=== PATIENT | female | born 1945 | race African-American/Black ===

== ENCOUNTER → 2017-11-15 | Outpatient (CLI) | payer BC ==
[~2017-11-15] MED LIST: ASPIRIN325 PO; KLOR-CON 1010 MEQ PO; LASIX 20 MG TAB20 MG PO; NITROGLYCERIN0.4 MG SUBLING
--- NOTE | 2017-11-15 18:14 | EKG ---
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
== END ==
LOC: EDBD 14:29 → M.ULTRA 14:29
DX: R06.02 Shortness of breath (principal); R55 Syncope and collapse; R51 Headache; R07.9 Chest pain, unspecified

== ENCOUNTER → 2018-02-18 | Outpatient (CLI) | payer BC, MEDICARE ==
[2018-02-18] VITALS (7 sets, daily range): BP systolic 124–185; BP diastolic 48–91
--- NOTE | 2018-02-18 13:28 | TEE ---
[place] [address] TRANSESOPHAGEAL ECHOCARDIOGRAM Name: SMITHA YOUNG Room: [facility]#: [id number] Admission: 02/18/18 Attend Phys: Charli Walls, Discharge: Date of : [birth year] Date of Service: 02/18/18 1327 Report #: [id number] THIS REPORT FOR: //name// APPROVED REPORT Study performed: 02/18/2018 10:51:22 EXAM: Transesophageal Echocardiogram Patient Location: Out-Patient Status: routine BSA: 2.00 HR: 55 bpm BP: 148/85 mmHg Rhythm: NSR Other Information Study Quality: Good Indications Mitral Valve Disease Procedure After obtaining informed consent, patient underwent transesophageal echo in the [employer]. Type of Sedation : Conscious Sedation Sedation was administered by Florence Ca. Sedation start time: 1050 Case end Time: 1109 Sedation was achieved intravenously with: Versed (7) Fentanyl (50) Transesophageal probe was inserted and advanced into esophagus without difficulty by Charli Walls MD, FACC. Echo enhancement indication: R/O Septal defect. Echo enhancement agent administered: Agitated Saline The MORA was performed without complications. Throughout the procedure, the blood pressure, pulse oximetry, cardiac rhythm, and rate were monitored. The patient tolerated the procedure without adverse effects. Recovery from conscious sedation was uneventful and vital signs were stable. Left Ventricle The left ventricle is normal size. There is normal LV segmental wall motion. There is normal left ventricular wall thickness. There is no ventricular septal defect visualized. Left ventricular systolic function is normal. The left ventricular ejection fraction is within [address] [address] TRANSESOPHAGEAL ECHOCARDIOGRAM Name: SMITHA YOUNG Room: [facility]#: [id number] Admission: 02/18/18 Attend Phys: Charli Walls, Discharge: Date of : [birth year] Date of Service: 02/18/18 1327 Report #: [id number] the normal range. No left ventricle thrombus noted on this study. LVEF is 65-70%. Right Ventricle The right ventricle is normal size. The right ventricular systolic function is normal. Atria The left atrium size is normal. No thrombus is visualized in the left atrium or appendage. Interatrial septum is intact without evidence of ASD or PFO.Negative bubble study. The right atrium size is normal. Aortic Valve The aortic valve is normal in structure. Aortic valve is trileaflet. No aortic regurgitation is present. There is no aortic valvular stenosis. Mitral Valve The posterior mitral valve leaflet is thickened , calcified and redundant . There is severe reduction in the annulus with apparent severe mitral valve stenosis. Moderate mitral regurgitation. Severe mitral stenosis. Tricuspid Valve The tricuspid valve is normal in structure. Mild tricuspid regurgitation. Pulmonic Valve The pulmonary valve is normal in structure. There is no pulmonic valvular regurgitation. Great Vessels The aortic root is normal in size. Pericardium There is no pericardial effusion. <Conclusion> LVEF is 65-70%. There is normal LV segmental wall motion. The posterior mitral valve leaflet is thickened , calcified and redundant . There is severe reduction in the annulus with apparent severe mitral valve stenosis. Moderate [place] [address] TRANSESOPHAGEAL ECHOCARDIOGRAM Name: HANNAHSMITHA Room: [facility] Darian#: [id number] Admission: 02/18/18 Attend Phys: Charli Walls, Discharge: Date of : [birth year] Date of Service: 02/18/181326 Report #: [id number] The left atrium size is normal. No thrombus is visualized in the left atrium or appendage. <ELECTRONICALLY SIGNED> By: Charli Walls MD, FACC 02/18/181326 26 26 Charli Walls MD, FACC /INF
== END | disposition home or self-care (01) ==
LOC: M.CL 09:08
DX: I05.2 Rheumatic mitral stenosis with insufficiency (principal); I36.1 Nonrheumatic tricuspid (valve) insufficiency

== ENCOUNTER 2018-02-22 10:16 | Inpatient (IN) | payer BC, MEDICARE ==
[~2018-02-22] VITALS: Ht 147.3 cm; Wt 124.3 kg
[~2018-02-22 10:16] MED LIST changes: -ASPIRIN325 PO; -NITROGLYCERIN0.4 MG SUBLING
[2018-02-22 10:18] VITALS: BP 151/64
[2018-02-22 10:57] LABS: ABSOLUTE BASOPHILS 0.1 thou/uL (0.0-0.2); ABSOLUTE EOSINOPHILS 0.3 thou/uL (0.0-0.7); ABSOLUTE LYMPHOCYTES 1.3 thou/uL (0.8-5.3); ABSOLUTE MONOCYTES 0.4 thou/uL (0.0-1.2); ABSOLUTE NEUTROPHILS 2.4 thou/uL (1.6-8.1); BASOPHILS 1.2 %; EOSINOPHILS 6.4 %; HEMATOCRIT 39.1 % (37.0-47.0); HEMOGLOBIN 12.9 gm/dL (12.0-15.0); LYMPHOCYTES 29.9 %; MCH 29.1 pg (26.0-34.0); MCV 88.4 fL (80.0-100.0); MPV 7.7 fl. (7.2-11.1); NUCLEATED RBCS 0 /100WBC; PLATELET COUNT* 229 thou/uL (150-400); POLYS 52.5 %; RBC 4.42 mil/uL (4.20-5.00); WBC 4.5 thou/uL (4.0-11.0)
[2018-02-22 11:12] LABS: ANION GAP 6 mmol/L (7-16); BUN 23 mg/dL (7-18); CALCIUM 9.1 mg/dL (8.5-10.1); CHLORIDE 105 mmol/L (98-107); CO2 28 mmol/L (21-32); GLUCOSE 91 mg/dL (70-99); POTASSIUM 3.8 mmol/L (3.5-5.1); SODIUM 139 mmol/L (136-145)
[2018-02-22 11:22] LABS: ALBUMIN 3.4 g/dL (3.4-5.0); ALKALINE PHOSPHATASE 101 U/L (46-116); LIPASE 54 U/L (73-393); MAGNESIUM 2.1 mg/dL (1.8-2.4); NT-PRO BRAIN NAT PEPTIDE 229 pg/mL (<300); SGOT 11 U/L (15-37); SGPT 12 U/L (30-65); TOTAL BILIRUBIN 0.5 mg/dL (<0.1-1.0); TOTAL PROTEIN 7.3 g/dL (6.4-8.2); TROPONIN-I LEVEL <0.06 ng/mL (<0.06)
[2018-02-22 13:07] VITALS: BP 109/51
[2018-02-22 13:33] VITALS: BP 129/55
[2018-02-22 15:48] VITALS: BP 140/66
--- NOTE | 2018-02-22 16:52 | NUR ---
PT ADMITTED AROUND 1330 PT IS ALERT AND ORIENTED X 4 PT DENIES PAIN INCLUDING CHEST PAIN OR SOA ON 2L/NC, PT IS UP AD BENITEZ PT IS NOT A FALL RISK PT EDUCATED TO CALL FOR ASSISTANCE IF SHE FEELS DIZZY OR LIGHTHEADED WHICH PT STATES SHE DOES NOT AND STATES UNDERSTANDING PT IS SB PAC ON THE MONITOR, PT HAS CARDIOLOGY CONSULT TALKED WITH HOSPITALIST OBTAINED ORDER FOR DIET GAVE PT BOXED LUNCH, WILL CONTINUE TO MONITOR
[2018-02-22 20:00] VITALS: BP 132/62
[2018-02-22 20:30] VITALS: BP 100/50
[2018-02-23 00:30] VITALS: BP 111/57
[2018-02-23 03:52] VITALS: BP 124/52
[2018-02-23 05:01] LABS: HEMATOCRIT 37.4 % (37.0-47.0); HEMOGLOBIN 12.3 gm/dL (12.0-15.0); MCH 29.2 pg (26.0-34.0); MCHC 32.9 g/dL (28.0-37.0); MCV 88.9 fL (80.0-100.0); MPV 7.8 fl. (7.2-11.1); RBC 4.21 mil/uL (4.20-5.00); RDW-CV 15.1 % (10.5-14.5); WBC 5.2 thou/uL (4.0-11.0)
[2018-02-23 05:21] LABS: CALCIUM 9.2 mg/dL (8.5-10.1); CREATININE 1.4 mg/dL (0.6-1.3); MAGNESIUM 2.2 mg/dL (1.8-2.4); POTASSIUM 4.1 mmol/L (3.5-5.1)
--- NOTE | 2018-02-23 05:40 | NUR ---
ASSUMED PT CARE AT 1930. NURSING ASSESSMENT COMPLETED AT START OF SHIFT. PT VOICED NO CONCERNS THIS SHIFT. PT TRACING SB WITH PVCS THIS SHIFT. PT C/O CHEST PAIN AT 2004. STAT EKG SHOWS SINUS RHYTHM. SPOKE WITH DR. LARSEN AT 2014. NEW ORDER RECEIVED FOR NITROGLYCERIN 0.4 MG SUBLINGUAL X3 DOSES. SEE EMAR FOR DOCUMENTATION. NO RELIEF AFTER FIRST NITRO DOSE, BP DROP TO 100/50, SPOKE WITH DR. BENTLEY AT 2099. NEW ORDERS RECEIVED FOR TORADOL. SEE EMAR FOR DOCUMENTATION. PT VERBALIZED RELIEF OF PAIN AFTER FIRST DOSE. PT RESTING QUIETLY IN ROOM AT THIS TIME. PT NPO AFTER MIDNIGHT. HOURLY ROUNDING COMPLETED, CALL LIGHT WITHIN REACH.
[2018-02-23 08:00] VITALS: BP 129/63
--- NOTE | 2018-02-23 11:52 | EKG ---
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 : 1946-08-25 Requested By: Justino Urena Order Number: [id number] Reading MD: Charli Walls Measurements Intervals [place] Rate: 54 P: 58 [place]: 177 QRS: 78 QRSD: 106 T: 62 QT: 456 QTc: 433 Interpretive Statements Sinus rhythm Borderline T wave abnormalities Baseline wander in lead(s) II Compared to ECG 11/15/2017 15:33:49 T-wave abnormality now present Electronically Signed On 02-23-2018 11:52:27 CDT by Charli Walls [email or web address] <ELECTRONICALLY SIGNED> By: Charli Walls MD, [facility] 02/23/18 1152 1234 1234 Charli Walls MD, [facility] /EPI
--- NOTE | 2018-02-23 11:52 | EKG ---
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 : 1946-08-25 Requested By: Glenn Toussaint Order Number: [id number] Reading MD: Charli Walls Measurements Intervals [place] Rate: 61 P: 66 [place]: 171 QRS: 86 QRSD: 113 T: 58 QT: 440 QTc: 444 Interpretive Statements Sinus rhythm Borderline intraventricular conduction delay Compared to ECG 11/15/2017 15:33:49 No significant changes Electronically Signed On 02-23-2018 11:52:17 CDT by Charli Walls [email or web address] <ELECTRONICALLY SIGNED> By: Charli Walls MD, [facility] 02/23/18 1152 1021 1021 Charli Walls MD, [facility] /EPI
--- NOTE | 2018-02-23 11:53 | EKG ---
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 [id number] 50 50 Charli Walls MD, FAC /EPI
[2018-02-23 12:06] VITALS: BP 118/38
[2018-02-23 14:22] LABS: BE 2.1 mmol/L (-2 to +3); HCO3 27.5 mmol/L (22.0-26.0); PCO2 45.6 mmHg (35.0-45.0); PO2 83.2 mmHg (75.0-100.0); pH 7.398 (7.340-7.450)
[2018-02-23 15:44] VITALS: BP 99/68
[2018-02-23] MEDS ORDERED: ASPIRIN325 PO (17:04)
[2018-02-23] MEDS ORDERED: NITROGLYCERIN0.4 MG SUBLING (17:06)
[2018-02-23 17:18] VITALS: BP 99/68
--- NOTE | 2018-02-23 17:35 | NUR ---
INFO FAXED TO [employer] FOR HOME WHEELCHAIR USE INCLUDING FACESHEET AND RX. NUMBER LEFT TO RETURN CALL TO CM TOMORROW WITH ANY QUESTIONS
--- NOTE | 2018-02-23 18:12 | NUR ---
ORDER RECEIVED TO DISCHARGE PATIENT HOME TO SELF CARE. ORDER RECEIVED TO OBTAIN WHEELCHAIR FOR HOME USE. ORDER OBTAINED FOR OVERNIGHT PULSE OX TO FURTHER ASSESS FOR HOME SUPPLEMENTAL OXYGEN. MED REC, MEDICATION EDUCATION, STROKE EDUCATION, AND NEED FOR FOLLWO UP APPOINTMENT WITH CTS AT [facility] COVERED AND STATED UNDERSTOOD BY PATIENT. IV AND TELEMTRY PACK REMOVED AND PATIENT TAKEN VIA WHEELCHAIR WITH FAMILY PRESENT TO AWAITNG CAR. HOURLY ROUNDING COMPLETD FOR PATIENT SAFETY AND PATIENT PARTICIPATED IN PLAN OF CARE.
--- NOTE | 2018-02-24 13:18 | NUR ---
[place] spoke with Amelie with [employer], she informed that Pt does not qualify for a wheelchair. Amelie to contact Pt and inform.
--- NOTE | 2018-03-04 15:27 | CON ---
[address] [address] CONSULTATION Name: HANNAHSMITHA Diego Room: [address] IN [facility].#: [id number] Admission: 02/22/18 Attend Phys: Justino Urena, Discharge: 02/23/18 Date of : [birth year] Report #: [id number] THIS REPORT FOR: //name// CC: ANIBAL physician/PCP Justino Urena REASON FOR CONSULTATION: Shortness of breath, chest discomfort. HISTORY OF PRESENT ILLNESS: The patient is a 71-year-old female known to myself as she has a history of mitral valve disease. She presented with severe episode of chest discomfort and shortness of breath episode yesterday with activity. She presents with a need for oxygen per nasal cannula. She was mildly hypoxic and on O2 of 2 liters nasal cannula. Her symptoms resolved. Her presenting ECG did not show any acute ST segment abnormalities and cardiac troponin levels are normal. She maintained a sinus rhythm. I had seen her initially as an outpatient after being discharged from [facility] with a diagnosis of normal coronary arteries. Subsequent to this, had an echocardiogram, demonstrated moderate mitral valve stenosis. However, clinical evaluation indicated she had significant dyspnea with any sort of activity. We performed a transesophageal echocardiogram, which revealed severe mitral valve stenosis as well as a mixed valvular insufficiency as well with mitral valve regurgitation. She has moderately elevated PA pressures. PAST MEDICAL HISTORY: Significant as noted above for mixed mitral valve disease, and she was scheduled for evaluation per CT Surgery at [facility]. Apparently, this is scheduled for tomorrow. HOME MEDICATIONS: Include Lasix 20 mg daily and potassium chloride 10 mEq daily. SOCIAL HISTORY: She is a nonsmoker, never smoker. She does not use alcohol. FAMILY HISTORY: Noncontributory. REVIEW OF SYSTEMS: GENERAL: No fevers or chills. PULMONARY: No cough. Positive dyspnea with exertion. Positive orthopnea. Positive PND. CARDIOVASCULAR: No palpitations noted. Positive chest pain, no edema. NEUROLOGIC: Denies slurred speech, numbness or weakness. No history of strokes, TIAs. ENDOCRINE: She is not known to be a diabetic. PHYSICAL EXAMINATION: VITAL SIGNS: Blood pressure is 150/60 on presentation, [place] [address] CONSULTATION Name: SMITHA YOUNG Room: [address]#: [id number] Admission: 02/22/18 Attend Phys: Justino Urena, Discharge: 02/23/18 Date of : [birth year] Report #: [id number] is 124/52. Pulse is 64, in a sinus rhythm, temperature 36.6. GENERAL: Pleasant, moderately obese, elderly -[place] female. She is very pleasant, in no apparent distress. HEENT: Unremarkable. Eyes are intact. No facial asymmetry. NECK: Supple. No jugular venous distention. CARDIOVASCULAR: Regular, with a systolic murmur. Faint diastolic component. LUNGS: Clear to auscultation. ABDOMEN: Nontender. EXTREMITIES: Show no peripheral edema. SKIN: Warm and dry. LABORATORY DATA: Electrocardiogram shows a sinus rhythm, bradycardia, with normal ST segments. She does have a borderline right axis. Chest x-ray shows mild cardiomegaly without findings for acute cardiopulmonary disease. IMPRESSION: 1. Acute hypoxia. I suspect she does have an oxygen requirement given her pulmonary hypertension secondary to her cardiovascular valvular disease. I would like to arrange for home O2 if possible until evaluation with CT Surgery. 2. Mixed mitral valve disease, predominantly a component of severe mitral valve stenosis, but she also has underlying mitral valve regurgitation, secondary pulmonary hypertension. 3. Pulmonary hypertension as above. I would like to see if she can benefit from home O2 in a short-term. 4. Preserved left ventricular function. 5. History of normal coronaries via cardiac catheterization at [facility]. There is no PCP. <ELECTRONICALLY SIGNED> By: Charli Walls MD, FACC 03/04/18 1527 1050 1300Charli Walls MD, FACC /nt
== END 2018-02-23 17:30 | disposition home or self-care (01) | DRG 291 ==
LOC: M.ERS 10:16 → M.2W 12:08 → M.TBA-ER 12:08 → M.2W 13:34
PROVIDERS: Emergency Medicine Emergency Medical Services; ADMIT Family Medicine
DX: I50.31 Acute diastolic (congestive) heart failure (principal); J96.01 Acute respiratory failure with hypoxia; Z68.43 Body mass index [BMI] 50.0-59.9, adult; I27.20 Pulmonary hypertension, unspecified; I05.0 Rheumatic mitral stenosis; R07.89 Other chest pain; E66.01 Morbid (severe) obesity due to excess calories; Z90.710 Acquired absence of both cervix and uterus; Z79.82 Long term (current) use of aspirin; Z79.899 Other long term (current) drug therapy; Z84.89 Family history of other specified conditions

== ENCOUNTER → 2018-07-16 | Outpatient (CLI) | payer BC, MEDICARE ==
[~2018-07-16] MED LIST changes: +ASPIRIN325 PO; +NITROGLYCERIN0.4 MG SUBLING
== END ==
LOC: M.RAD 13:16
DX: J98.11 Atelectasis (principal); Z98.890 Other specified postprocedural states; Z95.2 Presence of prosthetic heart valve

== ENCOUNTER 2018-09-22 14:15 | Inpatient (IN) | payer BC, OTHER ==
[~2018-09-22] VITALS: Ht 149.9 cm; Wt 125.2 kg
[2018-09-22 14:25] VITALS: BP 145/48
[2018-09-22] MEDS ORDERED: COUMADIN 2 MG TA2 M1 PO (14:31)
[2018-09-22 15:23] LABS: ABSOLUTE EOSINOPHILS 0.3 thou/uL (0.0-0.7); ABSOLUTE LYMPHOCYTES 1.3 thou/uL (0.8-5.3); ABSOLUTE MONOCYTES 0.4 thou/uL (0.0-1.2); ABSOLUTE NEUTROPHILS 2.1 thou/uL (1.6-8.1); BASOPHILS 0.9 %; EOSINOPHILS 6.7 %; HEMOGLOBIN 11.4 gm/dL (12.0-15.0); LYMPHOCYTES 31.4 %; MCH 28.2 pg (26.0-34.0); MCHC 32.5 g/dL (28.0-37.0); MCV 86.6 fL (80.0-100.0); MONOCYTES 9.9 %; MPV 7.6 fl. (7.2-11.1); NUCLEATED RBCS 0 /100WBC; PLATELET COUNT* 182 thou/uL (150-400); POLYS 51.1 %; RBC 4.04 mil/uL (4.20-5.00); RDW-CV 16.4 % (10.5-14.5); WBC 4.1 thou/uL (4.0-11.0)
[2018-09-22 15:29] LABS: INR 3.2; PROTIME 32.8 Seconds (9.20-11.50)
[2018-09-22 15:30] LABS: ANION GAP 6 mmol/L (7-16); BUN 16 mg/dL (7-18); CALCIUM 8.8 mg/dL (8.5-10.1); CHLORIDE 103 mmol/L (98-107); CO2 26 mmol/L (21-32); CREATININE 1.2 mg/dL (0.6-1.3); GLUCOSE 80 mg/dL (70-99); POTASSIUM 4.3 mmol/L (3.5-5.1); SODIUM 135 mmol/L (136-145)
[2018-09-22 15:40] LABS: ALBUMIN 3.3 g/dL (3.4-5.0); ALKALINE PHOSPHATASE 100 U/L (46-116); LIPASE 56 U/L (73-393); MAGNESIUM 2.1 mg/dL (1.8-2.4); NT-PRO BRAIN NAT PEPTIDE 755 pg/mL (<300); SGOT 13 U/L (15-37); SGPT 10 U/L (30-65); TOTAL BILIRUBIN 0.4 mg/dL (<0.1-1.0); TOTAL PROTEIN 7.3 g/dL (6.4-8.2); TROPONIN-I LEVEL <0.06 ng/mL (<0.06)
--- NOTE | 2018-09-22 15:56 | EKG ---
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 : 1946-08-25 Requested By: Glenn Toussaint Order Number: [id number] MD: Frankie Dubois Measurements Intervals [place] Rate: 61 P: -51 [place]: 164 QRS: 92 QRSD: 100 T: 68 QT: 452 QTc: 456 Interpretive Statements Sinus or ectopic atrial rhythm Right axis deviation Compared to ECG 02/22/2018 19:51:20 no change Electronically Signed On 09-22-2018 15:56:44 [employer] INSTRUMENT REPAIRER by Frankie Dubois [email or web address] <ELECTRONICALLY SIGNED> By: Frankie Dubois MD, [facility] 09/22/18 1556 1424 1424 Frankie Dubois MD, FACC /EPI
[2018-09-22 20:18] VITALS: BP 134/49
[2018-09-22 21:00] VITALS: BP 149/58
--- NOTE | 2018-09-22 21:00 | NUR ---
RECEIVED REPORT FROM ER, AMBULATED FROM CART TO BED WITH SLOW STEADY GAIT AND CANE. PT HAS BLE LYMPHEDEMA. TELEMETRY APPLIED SHOWING SB. NO SOB NOTED, ON RA. SEE ADMISSION ASSESSMENT AND HX. WILL CONT TO MONITOR AND ASSIST NEEDED.
--- NOTE | 2018-09-22 23:00 | NUR ---
PT C/O CHEST PRESSURE AND BUZZING FEELING. RATING PAIN 8/10 SCALE. TELEMETRY SHOWING SR. MORPHINE GIVEN AND EFFECTIVE.
[2018-09-23] VITALS: BP 127/35
[2018-09-23 03:14] LABS: ABSOLUTE BASOPHILS 0.1 thou/uL (0.0-0.2); ABSOLUTE EOSINOPHILS 0.3 thou/uL (0.0-0.7); ABSOLUTE LYMPHOCYTES 1.1 thou/uL (0.8-5.3); ABSOLUTE MONOCYTES 0.4 thou/uL (0.0-1.2); ABSOLUTE NEUTROPHILS 2.8 thou/uL (1.6-8.1); BASOPHILS 1.2 %; HEMATOCRIT 34.1 % (37.0-47.0); HEMOGLOBIN 11.1 gm/dL (12.0-15.0); LYMPHOCYTES 23.7 %; MCH 28.1 pg (26.0-34.0); MCHC 32.6 g/dL (28.0-37.0); MCV 86.2 fL (80.0-100.0); MONOCYTES 9.5 %; MPV 7.7 fl. (7.2-11.1); NUCLEATED RBCS 0 /100WBC; PLATELET COUNT* 198 thou/uL (150-400); POLYS 59.6 %; RBC 3.96 mil/uL (4.20-5.00); RDW-CV 15.7 % (10.5-14.5); WBC 4.6 thou/uL (4.0-11.0)
[2018-09-23 03:17] LABS: INR 3.2; PROTIME 32.8 Seconds (9.20-11.50)
[2018-09-23 04:00] VITALS: BP 138/61
[2018-09-23 04:49] LABS: ANION GAP 5 mmol/L (7-16); BUN 16 mg/dL (7-18); CHLORIDE 105 mmol/L (98-107); CHOLESTEROL 171 mg/dL (<200); CO2 27 mmol/L (21-32); CREATININE 1.2 mg/dL (0.6-1.3); GLUCOSE 99 mg/dL (70-99); HDL CHOLESTEROL 76 mg/dL (>40); LDL CHOLESTEROL 89 mg/dL (<100); MAGNESIUM 2.1 mg/dL (1.8-2.4); SODIUM 137 mmol/L (136-145); TC:HDL 2.3 Ratio (Not establshd); TRIGLYCERIDE 33 mg/dL (<150); VLDL 7 mg/dL (<40)
[2018-09-23 04:57] LABS: SERUM ASSESSMENT Clear
--- NOTE | 2018-09-23 06:11 | NUR ---
SLEPT WELL TONIGHT. ASSISTED TO BR WITH STEADY GAIT AND CANE. NO SOB NOTED. C/O CHEST PAIN X2 AND RESOLVED WITH MORPHINE. TELEMETRY SHOWING SB. HS GOALS OF REST AND SAFETY ACHIEVED. HOURLY ROUNDING OBSERVED.
[2018-09-23 06:35] LABS: AMP/METHAMP Negative (Negative); BARBITURATES Negative (Negative); BENZODIAZEPINES Negative (Negative); COCAINE Negative (Negative); METHADONE Negative (Negative); OPIATES POSITIVE (Negative); PCP Negative (Negative); THC Negative (Negative)
[2018-09-23 08:15] VITALS: BP 117/52
--- NOTE | 2018-09-23 08:55 | NUR ---
REC'D REPORT FROM NOC RN, ASSUMED CARE OF PT APPROX 0730. A&OX4, ABLE TO COMMUNICATE NEEDS TO STAFF. ROLL PICKER IN PLACE, SB PACS. O2 SAT 97% RA. ASSESSMENT COMPLETE. VS OBTAINED. CALL LIGHT WITHIN REACH. HOURLY ROUNDING FOR SAFETY AND PT NEEDS.
[2018-09-23 12:02] VITALS: BP 116/60
--- NOTE | 2018-09-23 12:55 | EKG ---
[place] [address] ELECTROCARDIOGRAM REPORT Name: SMITHA YOUNG Room: [address] ADM IN [facility].#: [id number] Admission: 09/22/18 Attend Phys: Cassie Torres MD Discharge: Date of : [birth year] Report #: [id number] THIS REPORT FOR: //name// [facility] Test Date: 2018-09-23 Test Time: 08:08:42 Pat Name: SMITHA YOUNG Department: Room: 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: : 1946-08-25 Requested By: Cassie Torres Order Number: [id number] Reading MD: Frankie Dubois Measurements Intervals [place] Rate: 60 P: -18 [place]: 175 QRS: 81 QRSD: 103 T: 78 QT: 479 QTc: 479 Interpretive Statements Sinus rhythm Atrial premature complex Borderline right axis deviation Compared to ECG 09/22/2018 14:24:02 Atrial premature complex(es) now present Electronically Signed On 09-23-2018 12:55:08 [employer] SERVICE UNIT OPERATOR by Frankie Dubois [email or web address] <ELECTRONICALLY SIGNED> By: Frankie Dubois MD, [facility] 09/23/18 1251 0808 0808 Frankie Dubois MD, [facility] /EPI
--- NOTE | 2018-09-23 14:52 | NUR ---
Pt was sound asleep when CM went to assess will f/u later
--- NOTE | 2018-09-23 14:54 | 2DMMODE ---
[place] [address] 2 D/M-MODE ECHOCARDIOGRAM Name: SMITHA YOUNG Room: [address] IN [facility]#: [id number] Admission: 09/22/18 Attend Phys: Cassie Torres MD Discharge: Date of : [birth year] Date of Service: 09/23/18 1454 Report #: [id number] THIS REPORT FOR: //name// APPROVED REPORT Study performed: 09/23/2018 10:34:28 EXAM: Comprehensive 2D, Doppler, and color-flow Echocardiogram Patient Location: In-Patient Room #: [facility] Status: routine BSA: 2.12 HR: 59 bpm BP: 138/61 mmHg Rhythm: NSR Other Information Study Quality: Good Indications Mitral Valve Disease Chest Pain MVR 2D Dimensions IVSd: 10.14 (7-11mm) LVOT Diam: 15.84 (18-24mm) LVDd: 38.83 mm PWd: 9.10 (7-11mm) Ascending Ao: 32.16 (22-36mm) LVDs: 23.38 (25-40mm) Aortic Root: 30.11 mm Volumes Left Atrial Volume (Systole) LA ESV Index: 23.40 mL/m2 Aortic Valve AoV Peak Josias.: 1.65 m/s AO Peak Gr.: 10.89 mmHg LVOT Max P.27 mmHg AO Mean Gr.: 6.31 mmHg LVOT Mean P.30 mmHg LVOT Max V: 1.25 m/s AO V2 VTI: 38.95 cm LVOT Mean V: 0.84 m/s JOSE FRANCISCO (VTI): 1.74 cm2 LVOT V1 VTI: 34.37 cm Mitral Valve MV Mean Gr.: 5.09 mmHg E/A Ratio: 2.21 [place] [address] 2 D/M-MODE ECHOCARDIOGRAM Name: SMITHA YOUNG Room: [address] IN [facility].#: [id number] Admission: 09/22/18 Attend Phys: Cassie Torres MD Discharge: Date of : [birth year] Date of Service: 09/23/18 1454 Report #: [id number] MV Decel. Time: 238.27 ms MV E Max Josias.: 1.80 m/s MV PHT: 69.10 ms MVA (PHT): 3.18 cm2 TDI E/Lateral E': 20.00 E/Medial E': 30.00 Medial E' Josias.: 0.06 m/s Lateral E' Josias.: 0.09 m/s Pulmonary Valve PV Peak Josias.: 0.86 m/s PV Peak Gr.: 2.95 mmHg Tricuspid Valve RAP Estimate: 5.00 mmHg TR Peak Gr.: 47.86 mmHg RVSP: 52.00 mmHg PA Pressure: 52.00 mmHg Left Ventricle The left ventricle is normal size. There is normal LV segmental wall motion. There is normal left ventricular wall thickness. Left ventricular systolic function is normal. The left ventricular ejection fraction is within the normal range. LVEF is 60-65%. Grade IV - fixed restrictive diastolic dysfunction. Right Ventricle The right ventricle is normal size. The right ventricular systolic function is normal. Atria The left atrium size is normal. The right atrium size is normal. Aortic Valve The aortic valve is normal in structure. No aortic regurgitation is present. There is no aortic valvular stenosis. Mitral Valve Mild mitral annular calcification. There is a bioprosthetic mitral valve. Mild mitral regurgitation. No evidence of mitral valve stenosis. Tricuspid Valve The tricuspid valve is normal in structure. Mild tricuspid regurgitation. estimate pa pressure 55 [place] [address] 2 D/M-MODE ECHOCARDIOGRAM Name: SMITHA YOUNG Diego Room: [address] IN [facility]#: [id number] Admission: 09/22/18 Attend Phys: Cassie Torres MD Discharge: Date of : [birth year] Date of Service: 09/23/18 1454 Report #: [id number] Pulmonic Valve The pulmonary valve is normal in structure. Mild pulmonic regurgitation. Great Vessels The aortic root is normal in size. IVC is normal in size and collapses >50% with inspiration. Pericardium There is no pericardial effusion. <Conclusion> LVEF is 60-65%. Mild mitral regurgitation. Mild tricuspid regurgitation. estimate pa pressure 55 mm Hg <ELECTRONICALLY SIGNED> By: Frankie Dubois MD, FACC 09/23/18 1454 1454 1454 Frankie Dubois MD, FACC /INF
--- NOTE | 2018-09-23 15:41 | CARDNUC ---
[place] [address] CARDIAC NUCLEAR IMAGING REPORT Name: SMITHA YOUNG Room: [address] IN [facility]#: [id number] Admission: 09/22/18 Attend Phys: Cassie Torres MD Discharge: Date of : [birth year] Date of Service: 09/23/18 1540 Report #: [id number] THIS REPORT FOR: //name// APPROVED REPORT Study performed: 09/23/2018 08:45:00 Indication: Chest pain, Palpitations Patient Location: In-Patient Room #: 211 Stress Tech: Kate Olivera Stress Nurse: Gricelda Odonnell RN Ht: 4 ft 11 in Wt: 277 lbs BSA: 2.12 m2 BMI: 55.94 Medical History Medical History: Angina, CKD, Fatigue, Former Smoker, HTN, Hyperlipidemia, Obesity , Valvular heart disease, HX of DVT, Systolic Murmur. Medications: ASA 81 mg, Lasix, K-Dur, Atorvastatin, home medication-Warfarin Allergies: No known drug allergies Cardiac Risk Factors: Age, FHX of CAD, HTN, Hyperlipidemia, Past Smoker, Systolic Murmur, Aortic Valve Replacement, BMI. Previous Cardiac Procedures: None Pretest Chest Pain Characteristics: Chest pain Exercise History: Sedentary Physical Disabilities: Legs, Knees, LE edema, BMI. Meds Held (24 hrs): None Pharmacologic Stress Pharmacologic stress test was performed by injecting Regadenoson 0.4 mg IV push over 10-15 seconds immediately followed by the intravenous injection of 38.7 mCi of Tc-99m Sestamibi. Time of stress injection: 11:50 Date: 09/23/2018 Administration Route: IV Administration Site: Left Arm Heart Rate at time of stress injection: 66 bpm. Gated Stress SPECT was performed 40 minutes after stress injection. The images were gated to evaluate regional wall motion and calculate left ventricular ejection fraction. [place] [address] CARDIAC NUCLEAR IMAGING REPORT Name: SMITHA YOUNG Room: [address] IN [facility]#: [id number] Admission: 09/22/18 Attend Phys: Cassie Torres MD Discharge: Date of : [birth year] Date of Service: 09/23/18 1540 Report #: [id number] Stress Test Details Stress Test: Pharmacologic stress testing performed using 0.4 mg of regadenoson per 5 mL given IV over 10 seconds. Reason for pharmacologic stress test: physical limitation, BMI, LE edema, bad knees/hips, unstable gait.. HR Max Heart Rate (APMHR): 148 bpm Resting HR: 47 bpm Target HR (85% APMHR): 125 bpm Max HR Achieved: 66 bpm % of APMHR: 44 Recovery HR: 58 bpm BP Resting BP: 123/62 mmHg Max BP: 186/60 mmHg Recovery BP: 111/60 mmHg ECG Resting ECG: Sinus Rhythm Stress ECG: Sinus Rhythm ST Change: None Arrhythmia: None Recovery ECG: Sinus Rhythm Recovery ST Change: None Recovery Arrhythmia: None Clinical Reason for Termination: Completed protocol Stress Symptoms: Nausea, Ache in stomach Exercise duration: 0 min 0 sec Exercise capacity: 1.00 METs The patient had some nonspecific symptoms abdominal ache with see scanned infusion. No specific cardiac symptoms were noted. Nurse Comments 72 year old female, inpatient, presented in wheelchair with nausea, LE edema and difficulty ambulating without assistance and Obesity. Patient could only swing one leg during sitting Lexiscan r/t feeling unstable without one foot on foot rest, and pain in leg made movement in moving leg very minimal. Patient tolerated sitting Lexiscan well. Recovery unremarkable with PO caffeine. Patient escorted via wheelchair by staff to Nuclear Medicine for images. Patient stable with no complaints at that time. Stress ECG Conclusion The baseline 12-lead EKG shows sinus rhythm without significant ST or T wave abnormality. EKGs obtained during [place] [address] CARDIAC NUCLEAR IMAGING REPORT Name: SMITHA YOUNG Room: [address]#: [id number] Admission: 09/22/18 Attend Phys: Cassie Torres MD Discharge: Date of : [birth year] Date of Service: 09/23/18 1540 Report #: [id number] show sinus rhythm without significant ST segment depression. There were no stress-induced arrhythmias. Study Quality Study: Good Artifact: No artifact Study Data Post stress, the left ventricular ejection was 72%.. Perfusion Post stress images show no defect to suggest infarct or ischemia. Wall Motion There is a septal wall motion abnormality noted with prior bypass procedure. Global LV systolic function is normal. Nuclear Conclusion ECG Findings: negative for ischemia Clinical Findings: negative for ischemia Nuclear Findings: negative for ischemia Exercise Capacity: not assessed Left Ventricular Function: preserved Risk Study: low Myocardial perfusion images post Lexiscan stress show no defect to suggest infarct or ischemia. Global LV systolic function is well-preserved. There is a septal wall motion abnormality noted consistent with prior bypass procedure. This is a low risk study. <Conclusion> The baseline 12-lead EKG shows sinus rhythm without significant ST or T wave abnormality. EKGs obtained during and post Lexiscan infusion show sinus rhythm without significant ST segment depression. There were no stress-induced arrhythmias. <ELECTRONICALLY SIGNED> By: Jaden Maciel MD, FACC 09/23/18 1540 1540 1540 Jaden Maciel MD, FACC /INF
[2018-09-23] MEDS ORDERED: LEXAPRO 10 MG T10 MG PO (15:54)
[2018-09-23 16:12] VITALS: BP 121/90
[2018-09-23 19:50] VITALS: BP 135/53
[2018-09-24] VITALS: BP 152/68
[2018-09-24 04:00] VITALS: BP 111/46
--- NOTE | 2018-09-24 05:35 | NUR ---
PT CARE ASSUMED AT 1930. SAT MAINTAINED IN RA. ALERT AND ORIENTED X4. PT UP WITH ASSIST. CALL LIGHT WITHIN REACH AND BED IN LOW POSITION. C/O CHEST PAIN, EKG DONE AND CHARTED, MEDICATION GIVEN PER EMAR. DENIES SOB. HOURLY ROUNDING DONE FOR PT SAFETY.
[2018-09-24 07:30] VITALS: BP 122/52
--- NOTE | 2018-09-24 07:54 | NUR ---
RECEIVED REPORT FROM NURSING DIRECTOR NURSE. ALL QUESTIONS ANSWERED. ASSESSMENT CHARTED. PATIENT HAS 7/10 CHEST PAIN, MORIPHINE GIVEN, WILL REEVALUATE. NO NAUSEA OR SHORTNESS OF AIR. PATIENT UPDATED ON PLAN OF CARE. STRESS TEST TO FINISH TODAY, WILL WAIT FOR CARDIOLOGY. BED IN LOWEST POSITION, CALL LIGHT IN REACH, MANAGER BUSINESS CONTINUITY IN PLACE.
--- NOTE | 2018-09-24 09:12 | EKG ---
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: [id number] : 1946-08-25 Requested By: Seb Bolaños Order Number: [id number] Donn MD: Frankie Dubois Measurements Intervals [place] Rate: 64 P: -36 ME: 182 QRS: 83 QRSD: 100 T: 58 QT: 448 QTc: 463 Interpretive Statements Sinus rhythm Borderline right axis deviation Compared to ECG 09/23/2018 08:08:42 Atrial premature complex(es) no longer present Electronically Signed On 09-24-2018 9:11:53 ROPE MAKER by Frankie Dubois [email or web address] <ELECTRONICALLY SIGNED> By: Frankie Dubois MD, FAC 09/24/18 0911 [id number] [id number] Frankie Dubois MD, [facility] /EPI
--- NOTE | 2018-09-24 10:09 | NUR ---
Pt is A&O. Resides at home alone, Pt's the day after 2017. Pt is independent with ADLs. Pt stated that she has a wc but does not use it. 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 CM faxed updated insurance info to precertification. Hx of HH, does not recall the name of the agency. No hx of skilled. Anticipate dc today. Following.
--- NOTE | 2018-09-24 11:23 | NUR ---
CARDIOLOGY SIGNED UP, FOLLOW UP APPT IN COMPUTER. PATIENT READY TO D/C HOME. RIDE HERE. DISCHARGE PAPERWORK STARTED.
[2018-09-24 11:27] VITALS: BP 122/52
--- NOTE | 2018-09-24 12:07 | NUR ---
PATIENT DISCHARGED AT THIS TIME. ALL QUESTIONS ANSWERED. INFORMATION GIVEN ON DISCHARGE. ALL BELONGINGS PACKED AND READY FOR PATIENT TO GO. IV D/C. MEDICATION SCIRPTS SENT WITH PATIENT
--- NOTE | 2018-09-24 13:21 | NUR ---
PT. DISCHARGE TO HOME PRIOR TO O.T. EVAL. PLEASE ORDER FURTHER O.T. SERVICES IF NEEDED.
== END 2018-09-24 11:40 | disposition home or self-care (01) | DRG 309 ==
LOC: M.ERS 14:15 → M.TBA-ER 16:06 → M.2W 16:06
PROVIDERS: Emergency Medicine Emergency Medical Services; ADMIT Family Medicine
DX: R00.2 Palpitations (principal); I50.32 Chronic diastolic (congestive) heart failure; N18.3 Chronic kidney disease, stage 3 (moderate); F41.9 Anxiety disorder, unspecified; E78.5 Hyperlipidemia, unspecified; F32.9 Major depressive disorder, single episode, unspecified; Z86.718 Personal history of other venous thrombosis and embolism; Z98.891 History of uterine scar from previous surgery; Z90.710 Acquired absence of both cervix and uterus; Z95.2 Presence of prosthetic heart valve; Z79.01 Long term (current) use of anticoagulants; Z79.82 Long term (current) use of aspirin; Z79.899 Other long term (current) drug therapy; Z82.49 Family history of ischemic heart disease and other diseases of the circulatory system

== ENCOUNTER → 2019-06-25 | Outpatient (CLI) | payer OTHER ==
[~2019-06-25] MED LIST changes: +COUMADIN 2 MG TA2 M1 PO; +LEXAPRO 10 MG T10 MG PO; +LIPITOR 20 MG T20 M1 PO; +TOPROL XL25 MG PO
--- NOTE | 2019-06-30 12:03 | CARD ---
[place] [address] CARDIAC CATH REPORT Name: SMITHA YOUNG Room: [facility].#: [id number] Admission: 06/25/19 Attend Phys: Jaden Maciel MD Discharge: Date of : [birth year] Report #: [id number] THIS REPORT FOR: //name// CC: Yamini Maciel DATE OF SERVICE: 06/25/2019 PROCEDURE: Implantable loop recorder placement. INDICATION: Palpitations, bradycardia and rule out atrial fibrillation. DESCRIPTION OF PROCEDURE: After informed consent was obtained, the patient was brought to the cardiac holding area. The area of the chest was prepped and draped in sterile fashion. The area of the fourth intercostal space, left of sternum was anesthetized using lidocaine. After an initial incision was made with the provided blade, a Biotronik BioMonitor 3 implantable loop recorder was placed subcutaneously without difficulty. The skin incision was then closed with Dermabond. The patient tolerated the procedure well without complication. The implanted device was a Biotronik BioMonitor 3, model #131291, serial #[id number]. IMPRESSION: 1. Bradycardia, palpitations and rule out atrial fibrillation. 2. Successful implantation of an implantable loop recorder. <ELECTRONICALLY SIGNED> By: Jaden Maciel MD, [facility] 06/30/19 1203 1132 [id number] Centerluc Maciel MD, BRITTANYC /nt
== END | disposition home or self-care (01) ==
LOC: M.CL 08:46
DX: R00.2 Palpitations (principal); R00.1 Bradycardia, unspecified; Z79.899 Other long term (current) drug therapy; Z98.890 Other specified postprocedural states; Z79.01 Long term (current) use of anticoagulants

== ENCOUNTER → 2020-03-15 | Outpatient (CLI) | payer OTHER ==
[~2020-03-15] VITALS: Ht 147.3 cm; Wt 113.4 kg
[2020-03-15 09:33] VITALS: BP 110/63
[2020-03-15 11:19] LABS: HEMATOCRIT 34.7 % (37.0-47.0); HEMOGLOBIN 11.7 gm/dL (12.0-15.0); MCH 29.6 pg (26.0-34.0); MCHC 33.7 g/dL (28.0-37.0); MCV 87.9 fL (80.0-100.0); MPV 7.4 fl. (7.2-11.1); RBC 3.95 mil/uL (4.20-5.00); WBC 6.3 thou/uL (4.0-11.0)
[2020-03-15 11:32] LABS: APTT 38.2 Seconds (25.0-31.3); CALCIUM 9.1 mg/dL (8.5-10.1); CREATININE 1.3 mg/dL (0.6-1.3); INR 1.4; POTASSIUM 3.9 mmol/L (3.5-5.1); PROTIME 14.7 Seconds (9.20-11.50)
[2020-03-15 11:36] LABS: ALBUMIN 3.8 g/dL (3.4-5.0); TOTAL BILIRUBIN 0.6 mg/dL (<0.1-1.0); TOTAL PROTEIN 7.9 g/dL (6.4-8.2)
--- NOTE | 2020-03-15 14:29 | EKG ---
[place] [address] ELECTROCARDIOGRAM REPORT Name: SMITHA YOUNG Room: [facility]#: [id number] Admission: 03/15/20 Attend Phys: Jaden Maciel, Discharge: Date of : [birth year] Date of Service: 03/15/20 0939 Report #: [id number] THIS REPORT FOR: //name// [facility] Test Date: 2020-03-15 Test Time: 09:39:25 Pat Name: SMITHA YOUNG Department: Room: Gender: F Coutierier: [facility] : 1946-08-25 Requested By: Jaden Maciel Order Number: [id number] Donn MD: Frankie Dubois Measurements Intervals [place] Rate: 57 P: -51 RI: 165 QRS: 71 QRSD: 109 T: 57 QT: 432 QTc: 421 Interpretive Statements Sinus or ectopic bradycardia nonspecific t wave changes Compared to ECG 09/23/2018 23:55:13 no change Electronically Signed On 03-15-2020 14:29:16 CDT by Frankie Dubois [email or web address] <ELECTRONICALLY SIGNED> By: Frankie Dubois MD, [facility] 03/15/20 1429 0939 0939 Fraknie Dubois MD, [facility] /EPI
--- NOTE | 2020-03-15 14:30 | EKG ---
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: [facility] : 1946-08-25 Requested By: Jaden Maciel Order Number: [id number] Donn MD: Frankie Dubois Measurements Intervals [place] Rate: 62 P: -36 MA: 182 QRS: 77 QRSD: 109 T: 132 QT: 432 QTc: 439 Interpretive Statements sinus rhythm Borderline repolarization abnormality Compared to ECG 03/15/2020 09:39:25 no change Electronically Signed On 03-15-2020 14:30:08 CDT by Frankie Dubois [email or web address] <ELECTRONICALLY SIGNED> By: Frankie Dubois MD, [facility] 03/15/20 1430 1416 141 Frankie Dubois MD, [facility] /EPI
--- NOTE | 2020-03-22 12:16 | CARD ---
[address] [address] CARDIAC CATH REPORT Name: HANNAHSMITHA Alessandra Room: [facility]#: [id number] Admission: 03/15/20 Attend Phys: Jaden Maciel MD Discharge: Date of : [birth year] Report #: [id number] THIS REPORT FOR: //name// cc: DONITA PEÑA MD, HEATHER L. MD ~ ADDENDUM APPROVED REPORT Study performed: 03/15/2020 12:22:08 Patient Status: Out-Patient Room #: Event Personnel: Jaden Maciel Staffing Account Manager, Javier Newman RN Retail Warehouse Associate, Dillon King RTR Scrub, Ros Harper RTR Monitor Exam: Insertion of Dual Chamber Permanent Pacemaker Indications: Complete Heart Block The patient is a 73 year-old female with a history of . Conscious Sedation Fentanyl 50 mcg Versed 2 mg Case Start 13:11 Case End:13:42 Implanted Devices: Edora 8 DR-T Biotronik Procedure The patient underwent informed consent. We discussed the details of the procedure including the risks, which include, but not limited to bleeding, infection, vascular damage, cardiac perforation, and pneumothorax. She understood these risks and was willing to proceed. As such, she was brought to the EP/Cardiac Catheterization laboratory in a fasting and sedated state and prepped and draped in a sterile fashion, received IV antibiotics prior to initiation of the procedure and a venogram was performed showing patency of the left axillary vein. The patient underwent conscious sedation, with no related complications. The patient was brought to the EP/Cardiac Catheterization laboratory and the left chest and shoulder were prepped and draped in a sterile manner. During this case, Fluoroscopy and visipaque 10cc were used for imaging. The left subclavian region was infiltrated with 2% Lidocaine subcutaneous anesthesia. A transverse incision was made in the left upper chest cavity. The subcutaneous pocket was formed via blunt dissection. Percutaneous venous access was achieved and [place] [address] CARDIAC CATH REPORT Name: SMITHA YOUNG Room: [facility]#: [id number] Admission: 03/15/20 Attend Phys: Jaden Maciel MD Discharge: Date of : [birth year] Report #: [id number] the left Subclavian vein. Utilizing fluoroscopic guidance, the atrial and ventricular lead wires were advanced over the wires and positioned in the right atria and right ventricle respectively. Capturing and sensing thresholds were verified. Electrode Parameters P Wave: 6.5 mV R Wave: 14.0 mV Atrial Threshold: 0.9@ 0.4 ms Ventricular Threshold: 0.8 @ 0.4 Atrial Resistance: 742 Ohms Ventricular Resistance: 642 Ohms Dual Chamber The atrial and ventricular leads were then secured using 0 silk sutures. The subcutaneous pocket was irrigated with ancef antibiotic solution.The atrial and ventricular leads were attached to the appropriate receptacles on the pulse generator and set screws firmly tightened to insure adequate contact and stability. The lead and pulse generator were placed into the subcutaneous pocket. Sharp and sponge counts were confirmed to be correct. At this time the pocket was closed subcutaneously with a 2.0 Vicryl and the skin was closed with a 4.0 Vicryl. The operative site was dressed in sterile fashion with steri strips and the patient was transferred to the floor in stable condition. Complications The patient tolerated the procedure well and there were no complications associated with the procedure. Findings Specimens Removed: N/A Estimated Blood Loss: <5 ml <ELECTRONICALLY SIGNED> By: Jaden Maciel MD, FACC 03/22/20 1216 15 1216Michaealessandra Maciel MD, FACC /INF
== END ==
LOC: M.CL 08:58
PROVIDERS: ATTEND Internal Medicine Cardiovascular Disease
DX: I45.5 Other specified heart block (principal); R00.1 Bradycardia, unspecified; I89.0 Lymphedema, not elsewhere classified; E78.2 Mixed hyperlipidemia; I82.409 Acute embolism and thrombosis of unspecified deep veins of unspecified lower extremity; I50.32 Chronic diastolic (congestive) heart failure; Z79.01 Long term (current) use of anticoagulants; Z95.2 Presence of prosthetic heart valve; Z79.899 Other long term (current) drug therapy; Z98.890 Other specified postprocedural states; Z90.710 Acquired absence of both cervix and uterus; Z88.2 Allergy status to sulfonamides

== ENCOUNTER → 2020-04-04 | Outpatient (CLI) | payer OTHER ==
--- NOTE | 2020-04-04 14:35 | 2DMMODE ---
[place] [address] 2 D/M-MODE ECHOCARDIOGRAM Name: HANNAHSMITHA Diego Room: [facility]#: [id number] Admission: 04/04/20 Attend Phys: Jaden Maciel, Discharge: Date of : [birth year] Date of Service: 04/04/20 1434 Report #: [id number] THIS REPORT FOR: cc: DONITA PEÑA MD, HEATHER L. MD Blick, David R. MD [facility] ~ APPROVED REPORT Study performed: 04/04/2020 12:39:58 EXAM: Comprehensive 2D, Doppler, and color-flow Echocardiogram Patient Location: Out-Patient BSA: 2.08 HR: 72 bpm BP: 138/60 mmHg Other Information Study Quality: Good Indications Dyspnea 2D Dimensions IVSd: 13.52 (7-11mm) LVOT Diam: 19.63 (18-24mm) LVDd: 35.86 mm PWd: 10.15 (7-11mm) Ascending Ao: 30.28 (22-36mm) LVDs: 26.41 (25-40mm) Aortic Root: 27.38 mm Volumes Left Atrial Volume (Systole) LA ESV Index: 16.10 mL/m2 Aortic Valve AoV Peak Josias.: 1.51 m/s AO Peak Gr.: 9.11 mmHg LVOT Max P.07 mmHg AO Mean Gr.: 5.14 mmHg LVOT Mean P.03 mmHg LVOT Max V: 1.01 m/s AO V2 VTI: 32.16 cm LVOT Mean V: 0.66 m/s JOSE FRANCISCO (VTI): 2.24 cm2 LVOT V1 VTI: 23.75 cm AI [place]: 2.32 m/s2 AI PHT: 413.09 [place] [address] 2 D/M-MODE ECHOCARDIOGRAM Name: SMITHA YOUNG Room: [facility]#: [id number] Admission: 04/04/20 Attend Phys: Jaden Maciel, Discharge: Date of : [birth year] Date of Service: 04/04/20 1434 Report #: [id number] Mitral Valve MV Peak Gr.: 21.80 mmHg MV Mean Gr.: 5.72 mmHg E/A Ratio: 3.47 MV Decel. Time: 229.99 ms MV E Max Josias.: 1.67 m/s MV PHT: 66.70 ms MVA (PHT): 3.30 cm2 TDI E/Lateral E': 18.56 E/Medial E': 20.88 Medial E' Josias.: 0.08 m/s Lateral E' Josias.: 0.09 m/s Pulmonary Valve PV Peak Josias.: 0.96 m/s PV Peak Gr.: 3.71 mmHg Tricuspid Valve RAP Estimate: 5.00 mmHg TR Peak Gr.: 22.60 mmHg RVSP: 27.60 mmHg PA Pressure: 27.60 mmHg Left Ventricle The left ventricle is normal size. There is normal LV segmental wall motion. There is normal left ventricular wall thickness. Left ventricular systolic function is normal. The left ventricular ejection fraction is within the normal range. LVEF is 60-65%. Grade IV - fixed restrictive diastolic dysfunction. Right Ventricle The right ventricle is normal size. The right ventricular systolic function is normal. Pacemaker lead is present in the right ventricle. Atria The left atrium size is normal. Pacemaker lead is present in the right atrium. The right atrium size is normal. Aortic Valve The Aortic valve is sclerotic. Mild aortic regurgitation. There is no aortic valvular stenosis. Mitral Valve There is a bioprosthetic mitral valve. There is no mitral valve regurgitation noted. Mild mitral stenosis. Tricuspid Valve The tricuspid valve is normal in structure[place] [address] 2 D/M-MODE ECHOCARDIOGRAM Name: HANNAHSMITHA L [id number] Admission: 04/04/20 Attend Phys: Jaden Maciel, Discharge: Date of : [birth year] Date of Service: 04/04/20 1434 Report #: [id number] regurgitation. estimated pa pressure 30 mm Hg Pulmonic Valve Pulmonic valve is not well visualized. Mild pulmonic regurgitation. Great Vessels The aortic root is normal in size. IVC is normal in size and collapses >50% with inspiration. Pericardium There is no pericardial effusion. <Conclusion> LVEF is 60-65%. The Aortic valve is sclerotic. Mild aortic regurgitation. There is a bioprosthetic mitral valve. Mild mitral stenosis. Mild tricuspid regurgitation. estimated pa pressure 30 mm Hg <ELECTRONICALLY SIGNED> By: Frankie Dubois MD, [facility] 04/04/20 1434 1434 1434 Frankie Dubois MD, FACC /INF
== END ==
LOC: M.CRD 12:33
PROVIDERS: ATTEND Internal Medicine Cardiovascular Disease
DX: I08.8 Other rheumatic multiple valve diseases (principal); R06.02 Shortness of breath

== ENCOUNTER 2020-12-09 17:47 | Emergency (ER) | payer OTHER ==
[~2020-12-09] VITALS: Ht 149.9 cm; Wt 113.4 kg
[2020-12-09 20:37] LABS: ABSOLUTE BASOPHILS 0.1 thou/uL (0.0-0.2); ABSOLUTE EOSINOPHILS 0.2 thou/uL (0.0-0.7); ABSOLUTE LYMPHOCYTES 1.3 thou/uL (0.8-5.3); ABSOLUTE MONOCYTES 0.5 thou/uL (0.0-1.2); ABSOLUTE NEUTROPHILS 3.4 thou/uL (1.6-8.1); EOSINOPHILS 2.8 %; HEMATOCRIT 35.8 % (37.0-47.0); HEMOGLOBIN 11.6 gm/dL (12.0-15.0); LYMPHOCYTES 23.4 %; MCHC 32.5 g/dL (28.0-37.0); MCV 86.2 fL (80.0-100.0); MONOCYTES 9.5 %; MPV 6.8 fl. (7.2-11.1); NUCLEATED RBCS 0 /100WBC; PLATELET COUNT* 240 thou/uL (150-400); POLYS 63.3 %; RBC 4.15 mil/uL (4.20-5.00); RDW-CV 15.5 % (10.5-14.5); WBC 5.4 thou/uL (4.0-11.0)
[2020-12-09 20:45] LABS: CALCIUM 9.2 mg/dL (8.5-10.1); CREATININE 1.2 mg/dL (0.6-1.3); POTASSIUM 3.8 mmol/L (3.5-5.1)
[2020-12-09 20:50] LABS: ALBUMIN 4.2 g/dL (3.4-5.0); TOTAL BILIRUBIN 0.8 mg/dL (<0.1-1.0); TOTAL PROTEIN 8.6 g/dL (6.4-8.2)
[2020-12-09] MEDS ORDERED: NORCO5 PO ×2 (21:14→21:35)
[2020-12-09 21:45] VITALS: BP 146/59
--- NOTE | 2020-12-11 09:42 | EKG ---
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: : 1946-08-25 Requested By: Malu Melchor Order Number: [id number] MD: Frankie Dubois Measurements Intervals [place] Rate: 77 P: [place]: 150 QRS: 101 QRSD: 96 T: 44 QT: 449 QTc: 509 Interpretive Statements Atrial-paced rhythm Right axis deviation Consider left ventricular hypertrophy Prolonged QT interval Baseline wander in lead(s) II Compared to ECG 03/15/2020 14:16:53 Right-axis deviation now present Prolonged QT interval now present Electronically Signed On 12-11-2020 9:41:52 CDT by Frankie Dubois [email or web address] <ELECTRONICALLY SIGNED> By: Frankie Dubois MD, FAC 12/11/2041 24 24 Frankie Dubois MD, FAC /EPI
== END 2020-12-09 21:45 | disposition home or self-care (01) ==
LOC: M.ERS 17:47
PROVIDERS: Physician Assistant
DX: M25.511 Pain in right shoulder (principal); Z90.710 Acquired absence of both cervix and uterus; Z98.890 Other specified postprocedural states; Z86.718 Personal history of other venous thrombosis and embolism; Z86.19 Personal history of other infectious and parasitic diseases